=== PATIENT | female | born 1955 | race Caucasian/White ===

== ENCOUNTER 2022-01-10 08:00 | Outpatient (RCR) | payer MEDICARE, OTHER, SELFPAY | END 2022-01-16 09:08 | disposition home or self-care (01) | LOC: HO.PT 08:00 | PROVIDERS: PCP Physician Assistant Medical; Visit Provider Obstetrics & Gynecology | DX: N81.89 Other female genital prolapse (principal) | CPT/HCPCS: 97035; 97110; 97112; 97140; 97162 ==

== ENCOUNTER 2022-02-21 14:00 | Outpatient (RCR) | payer MEDICARE, OTHER, SELFPAY | END 2022-02-21 15:16 | disposition home or self-care (01) | LOC: HO.PT 14:00 | PROVIDERS: PCP Physician Assistant Medical; Visit Provider Physician Assistant | DX: M75.41 Impingement syndrome of right shoulder (principal) | CPT/HCPCS: 97110; 97140; 97161 ==